=== PATIENT | male | born 1975 | race Caucasian/White ===

== ENCOUNTER 2020-08-17 19:45 | Emergency (ER) | payer OTHER ==
[~2020-08-17] VITALS: Ht 190.5 cm; Wt 99.8 kg
[2020-08-17] MEDS ORDERED: FERROUS SULFAT325 MG PO (22:02)
== END 2020-08-17 22:18 | disposition home or self-care (01) ==
LOC: ED 19:45
DX: D50.9 Iron deficiency anemia, unspecified (principal); K62.89 Other specified diseases of anus and rectum; F17.200 Nicotine dependence, unspecified, uncomplicated
CPT/HCPCS: 80053; 82728; 83540; 83735; 84466; 85025; 85610; 85730; 99284

== ENCOUNTER 2020-08-23 10:30 | Inpatient (IN) | payer OTHER ==
[~2020-08-23] VITALS: Ht 190.5 cm; Wt 98.2 kg
[~2020-08-23 10:30] MED LIST: FERROUS SULFAT325 MG PO
--- OUTSIDE RECORDS SUMMARY | 2020-08-23 10:36 | XMS ---
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 Maria G has no Care Guidelines for this patient. Kyara VISIT COUNT (12 MO.) [address] [facility] TOTAL 2 NOTE: Visits indicate total known visits. ED/C VISIT TRACKING (12 MO.) 08/23/2020 10:[address] [facility] [place] TYPE: Emergency COMPLAINT: - ABD PAIN 08/17/2020 19:46 [facility] [place] TYPE: Emergency COMPLAINT: - WEAKNESS DIAGNOSES: - Weakness - Iron deficiency anemia, unspecified - Other specified diseases of anus and rectum - Nicotine dependence, unspecified, uncomplicated INPATIENT VISIT TRACKING (12 MO.) No inpatient visits to display in this time frame [id number]
--- NOTE | 2020-08-23 20:15 | NUR ---
1ST UNIT OF PRBC'S STARTED WITH MARY MARAVILLA CHARGE NURSE. VS STABLE AND ASSESSMENT BENIGN EXCEPT PATIENT HAS AN EXPIRATORY WHEEZE IN ALL LUNG [place], WHICH PATIENT SAYS HE HAS HAD. MARY MARAVILLA STAYING IN THE ROOM FOR 15 MINUTES WITH PATIENT.
--- NOTE | 2020-08-23 20:36 | NUR ---
FIRST UNIT PACKED RED BLOOD CELLS INFUSING AT 2014. pt EDUCATION PROVIDED, NO ADVERSE REACTIONS NOTED AFTER 15 MINUTES, RN IN ROOM PER PROTOCOL. RATE INCREASED TO 175 MLS/HR. CHASTITY BURGESS PROVIDED TO pt. IN ROOM. VSS. NO ADDITIONAL NEEDS AT THIS TIME. CALL LIGHT IN REACH.
--- NOTE | 2020-08-23 22:57 | NUR ---
SECOND UNIT BLOOD INFUSING WNL. RN IN ROOM FOR 15 MINUTES PER POLICY, NO ADVERSE REACTION. BLOOD INFUSION INCREASED TO 175 ML/HR. pt RATES PAIN 6-7/10 IN ABDOMEN, PRN PO PAIN MEDICATION ADMINISTERED. CALL LIGHT IN REACH. LIGHTS OFF IN ROOM.
--- NOTE | 2020-08-23 23:40 | NUR ---
PATIENT'S 2ND UNIT OF PRBC'S STILL INFUSING WNL. PATIENT SAID HIS PAIN IS UNDER CONTROL AT THIS TIME. PATIENT TRYING TO SLEEP INBETWEEN STAFF TIMES OF ENTERING THE ROOM. CALL LIGHT IN REACH AND PATIENT HAS NO NEEDS AT THIS TIME.
--- NOTE | 2020-08-24 00:59 | NUR ---
PATIENT'S 2ND UNIT PRBC'S INFUSED. VS STABLE AND NO TRANSFUSION REACTION NOTED. PATIENT HAVING 7/10 RUQ ABD PAIN AND 1MG IV DILAUDID GIVEN. CALL LIGHT IN REACH.
--- NOTE | 2020-08-24 02:46 | NUR ---
PATIENT RESTING QUIETLY, CALL LIGHT IN REACH, RESPIRATIONS REGULAR AND EVEN, EYES CLOSED, PATIENT IN SEMI-FOWLERS POSITION. NO NEEDS AT THIS TIME.
--- NOTE | 2020-08-24 03:29 | NUR ---
PATIENT WA AWAKE DOING ROOM CHECKS AND HE SAYS HE DOES NOT HAVE ANY NEEDS AT THIS TIME. CALL LIGHT IS IN REACH.
--- NOTE | 2020-08-24 05:24 | NUR ---
PATIENT JUST UP TO THE BATHROOM TO VOID AND BACK TO BED WITH 1PSBA. PATIENT'S PAIN IS 7/10 IN RUQ OF THE ABD. 2 PO NORCO GIVEN. PATIENT HAS HAD 1MG IV DILAUDID TWICE THIS SHIFT AND ONE OTHER NORCO. PAIN DROPS DOWN TO 3-4/10 AFTER MEDICATION AND PATIENT USUALLY REQUESTING PAIN MEDS AT 7-8/10. VS HAVE BEEN STABLE AND URINE OUTPUT HAS BEEN ADEQUATE. PATIENT WANTING TO GET SOME MORE SLEEP AND LIGHTS TURNED DOWN AND CALL LIGHT IN REACH.
--- NOTE | 2020-08-24 05:56 | CONS ---
[facility] [address], [place] [address] Signed DATE OF CONSULTATION: 08/23/2020 CHIEF COMPLAINT: Right upper quadrant abdominal pain. 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 He [place] about [place] . He said over the winter he typically loses about 20 pounds. However, this winter he has lost 40 pounds. He said he has developed shortness of breath and dyspnea on exertion is feeling weak and fatigued. He had been to his primary care provider as well as the emergency room. His hemoglobin was just over 6 and so he had been sent to the emergency room. He was evaluated and found to have a mean cell volume in the 50s. He was not having any obvious hematemesis, hematochezia or melena. He thinks maybe he might have had one or two dark stools, but he is not sure. Consequently, he was discharged home on iron and asked to follow up his primary care provider. However, his symptoms seemed to be escalating, so he came back to the emergency room. On this occasion, he has negative and the CT scan shows that he has a large necrotic tumor and hepatic flexure of his colon. The liver seems to be unremarkable. Consequently, I was asked to admit him as a general surgeon on-call. In the meantime, I was operating so I did have our hospitalist see him and he is going to get a couple of units tonight. We will plan on doing his bowel prep tomorrow. PAST MEDICAL HISTORY: Anemia. PAST SURGICAL HISTORY: Right knee surgery and a right inguinal hernia repair at age [age]. SOCIAL HISTORY: He smokes marijuana. He has a drink once or twice a month. He is to his , Iman, . They have two children and now are grown. 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 They live in [place], [place]. Dr. Estefania Reddy is his primary care provider, [facility]. FAMILY HISTORY: Dad had diabetes, hypertension, coronary artery disease. No one had any family history of colon polyps or cancer. REVIEW OF SYSTEMS: He said he has no metal in his body. ALLERGIES: Electronically Signed By: KENNEDI STRONG MD 08/24/20 0556 PATIENT NAME: GAUDENCIO VICKERS CONSULTATION DATE OF : 75 REPORT #: [id number] PHYSICIAN: KENNEDI STRONG MD PCP: ROWENA REDDY PA-C REPORT IS CONFIDENTIAL AND NOT TO BE RELEASED WITHOUT AUTHORIZATION [facility] [address], [place] [address] Signed None. MEDICATIONS: None. PHYSICAL EXAMINATION: VITAL SIGNS: Blood pressure 124/81, heart rate 73, respiratory rate 16, temperature is 98.4. He is 100% on room air. He is 6 feet 3 inches at 97 kg. GENERAL: Gaudencio is a 45-year-old gentleman who generally appears healthy and at his stated age. His is at the bedside. LUNGS: Clear to auscultation bilaterally. HEART: Regular rate and rhythm without murmurs. ABDOMEN: Generally soft and flat, but he has fullness right over the area of the gallbladder and hepatic flexure with some tenderness. RECTAL: Not repeated today. LABORATORY DATA: His white blood count 11.0. His neutrophils are 75, his hemoglobin 7.4 with a mean cell volume of 56, platelets 421. BUN 15, creatinine 0.92. Liver function tests are negative. Albumin 4.2. Urinalysis negative. COVID is negative. RADIOGRAPHIC STUDIES: CT scan abdomen and pelvis is reviewed including the report and the images. He clearly has a very large necrotic tumor in the hepatic flexure. Liver appears to be uninvolved. However, there are some lymph nodes and they were not particularly enlarged. 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 He is going to be admitted and given a couple of units tonight. Hopefully, we will do a bowel prep tomorrow with a colonoscopy the next day followed by surgery the day or two after that. In the meantime, he needs a CEA level and a CT scan of his lungs. I reviewed all this with Gaudencio and his in detail. They have expressed understanding agreed above plan. Kennedi Strong MD ALB/MODL /[id number] Electronically Signed By: KENNEDI STRONG MD 08/24/20 0556 PATIENT NAME: GAUDENCIO VICKERS CONSULTATION DATE OF : 75 REPORT #: [id number] PHYSICIAN: KENNEDI STRONG MD PCP: ROWENA REDDY PA-C REPORT IS CONFIDENTIAL AND NOT TO BE RELEASED WITHOUT AUTHORIZATION [facility] [address] [place], [place] [address] Signed cc: Rowena Reddy Copies: ~ Electronically Signed By: KENNEDI STRONG MD 08/24/20 0556 PATIENT NAME: GAUDENCIO VICKERS CONSULTATION DATE OF : 75 REPORT #: [id number] PHYSICIAN: KENNEDI STRONG MD PCP: ROWENA REDDY PA-C REPORT IS CONFIDENTIAL AND NOT TO BE RELEASED WITHOUT AUTHORIZATION
--- NOTE | 2020-08-24 07:30 | NUR ---
RECEIVED REPORT AT 0700, FOUND PT AWAKE IN ROOM. PT HAD NO NEEDS AT THAT TIME. AT ABOUT 0715 PT DID VOMIT 100MLS. 8MG ZOFRAN WAS GIVEN. WILL CONTINUE TO MONITOR.
--- NOTE | 2020-08-24 08:19 | NUR ---
MED REC COMPLETE
--- NOTE | 2020-08-24 09:30 | NUR ---
LOBES ARE CLEAR, ABD IS SOFT BUT RUQ IS TENDER TO TOUCH. PT HAS A VERY FLAT AFFECT AND STATED THAT HE FEELS DEPRESSED. ABD IS NOT DISTENDED PER PT, PT IS NOT JAUNDICE. NORCO DOES WELL FOR PAIN. WILL CONTINUE TO MONITOR.
--- NOTE | 2020-08-24 11:29 | NUR ---
Pt lives at [place] with his . He has 2 adult children. FAmily will assist as needed. He does not use any DME. House is 1 story with 2 steps and he does not believe he will have any problems with ambulation. Denies financial issues. 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 Plans on dc to home when cleared medically.
--- NOTE | 2020-08-24 12:00 | NUR ---
THERAPUTIC LISTENING WAS DONE WITH PT. PT IS DRINKING BOWEL PREP. PAIN IS CONTROLLED WELL WITH NORCO. NO NEW CONCERNS NOTED AT THIS TIME.
--- NOTE | 2020-08-24 13:59 | NUR ---
PATIENT IS SLEEPING.
--- NOTE | 2020-08-24 14:00 | NUR ---
PT HAD SOME NAUSEA EARLIER. PRN PHENERGAN WAS GIVEN. PT AT THIS TIME HAS NO N/V. PT STILL DRINKING BOWEL PREP.
--- NOTE | 2020-08-24 16:00 | NUR ---
PT IN BED SLEEPING. NO MORE N/V AFTER PHENERGAN WAS GIVEN.
--- NOTE | 2020-08-24 17:44 | NUR ---
AT START OF SHIFT PT NEEDED PRN ZOFRAN FOR VOMITING. PT THIS AFTERNOON NEEDED PHENERGAN FOR NAUSEA. PT OVERALL HAS BEEN TRYING TO COME TO TERMS WITH HIS HEALTH SITUATION AND DIAGNOSIS. PT HAS A FLAT AFFECT AT TIMES. ABD IS TENDER TO TOUCH RUQ. BOWEL TONES PRESENT. URINE LOOKS ORANGE IN COLOR. PT HAS BEEN DRINKING BOWEL PREP. V/S WDL OVERALL, OUTPUT WDL OVERALL.
--- NOTE | 2020-08-24 19:27 | NUR ---
PATIENT IS INDEPENDENT. I DID ASK HIM IF HE WOULD LIKE TO TAKE A SHOWER SOMETIME TODAY AND HE SAID MAYBE.
--- NOTE | 2020-08-24 19:30 | NUR ---
SHIFT REPORT RECEIVED FROM DARON SHANKAR AT BEDSIDE. pt AWAKE AND RESTING IN BED, IN ROOM. IV FLUIDS INFUSING PER MD GARRISON, SITE WNL. REMAINING BOWEL PREP AT BEDSIDE, pt REPORTS HAVING 5-6 BM'S SINCE STARTING BOWEL PREP. WILL MONITOR. NO NEEDS AT THIS TIME, CALL LIGHT IN REACH. BOARD UPDATED.
--- NOTE | 2020-08-24 19:36 | NUR ---
pt reports 7/10 abd pain, prn pain med provided. new bag iv fluids provided. no other needs at this time. call light inr each.
--- NOTE | 2020-08-24 20:35 | NUR ---
ASSESSMENT COMPLETE, SCHEDULED PATCH KEPT IN PLACE PER pt REQUEST. A/OX4, VSS. SCANT EXP WHEEZE IN BILATERAL UPPER LOBES, O2 SAT WNL ON RA. pt DENIES CHEST PAIN AND SOB, RATES PAIN 3/10 IN RIGHT UPPER QUADRANT. DENIES WORSENING DISTENSION, ALSO DENIES NAUSEA. NO FURTHER NEEDS, CALL LIGHT IN REACH. SCD'S OFF AT THIS TIME TO HELP WITH GETTING TO BATHROM. pt REPORTS MULTIPLE BM'S SINCE STARTING BOWEL PREP, pt STATES, "I HAD A BM NOT TOO LNG AGO, BUT I FORGOT TO SAVE IT AND IT GOT FLUSHED". WILL MONITOR.
--- NOTE | 2020-08-25 00:05 | NUR ---
pt MADE NPO AT THIS TIME, pt AWOKE WHEN RN ENTERED ROOM. VERBALIZES UNDERSTANDING REGARDING NPO STATUS. DENIES BM SINCE EVENING ASSESSMENT. pt INSTRUCTED TO CALL AFTER HAVING BM, pt VERBALIZED UNDERSTANDING. NO FURTHER NEEDS, CALL LIGHT IN REACH.
--- NOTE | 2020-08-25 01:51 | NUR ---
ASSESSMENT COMPLETE, NO NEW CHANGES OR CONCERNS. pt REPORTS PAIN TOLERABLE, 3-4/10. DENIES NEED FOR PAIN MEDICATION. RECENT BM, LIQUID, DARK BROWN IN COLOR. DENIES NAUSEA. IV FLUIDS REMAINS INFUSING PER MD ORDERS, SITE WNL. NO FURTHER NEEDS, CALL LIGHT IN REACH.
--- NOTE | 2020-08-25 05:05 | NUR ---
VS AND I&O'S COMPLETE AND STABLE, RECENT BM LIQUID BROWN WITH SMALL AMOUNT OF SEDIMENT CONSISTENCY. 100MLS OUTPUT. WILL CONTINUE TO MONITOR. NEW BAG IV FLUIDS HUNG AND INFUSING, SITE WNL. MOUTH SWABS PROVIDED, pt NPO. NO FURTHER NEEDS, CALL LIGHT IN REACH. LR WITH SRAIGHT TUBING ALSO IN ROOM.
--- NOTE | 2020-08-25 06:45 | NUR ---
pt HAD UNEVENTFUL NIGHT, SLEPT OFF AND ON THIS SHIFT. PAIN CONTROLLED WITH PO PAIN MEDICATION, SEE EMAR. INDEPENDENT IN ROOM, VSS. IV FLUIDS PER MD ORDERS, SITE WNL. MULTIPLE BM'S THIS SHIFT, NPO SINCE MIDNIGHT FOR PLANNED COLONOSCOPY. VOIDING QS, DENIED NAUSEA. BOWEL TONES ACTIVE.
--- NOTE | 2020-08-25 08:16 | NUR ---
CALLED MD STRONG IN REGARDS TO HOLDING LOVENOX PRIOR TO COLONOSCOPY AT 0845. I WAS INSTRUCTED TO GIVE IT.
--- NOTE | 2020-08-25 08:45 | NUR ---
PT LEFT FLOOR FOR COLONOSCOPY.
--- NOTE | 2020-08-25 09:30 | NUR ---
PT GONE TO SURGERY FOR COLONOSCOPY. NO CHANGE IN PLAN FOR DC.
--- NOTE | 2020-08-25 10:02 | NUR ---
08/25/20 1002 Shavon Ayoub 0948 PT ARRIVED TO PACU ON 6L VIA MASK, PT NONREACTIVE. 0959 PT WOKE AND IS REORIENTED TO PACU, PT DENIES PAIN. VSS.
--- NOTE | 2020-08-25 10:24 | NUR ---
PT STILL IN SX.
--- NOTE | 2020-08-25 11:02 | NUR ---
PT ARRIVED ON FLOOR AT 1030. PT AAOX4, ABD SOUNDS PRESENT, V/S WDL.
--- NOTE | 2020-08-25 11:39 | NUR ---
PT TAKEN TO SURGERY, WILL CHECK BACK
--- NOTE | 2020-08-25 11:58 | NUR ---
POST-OP Q1 HOURS VS DONE. ALL WITHIN NORMAL LIMITS. PT REPORTS TO BE SLOWLY PASSING GAS, ABD DISCOMFORT AND PAIN LEVEL AROUND 5. JELLO GIVE PER PT REQUEST AND COMPLIANCE WITH DIET ORDERED. ENCOURAGED TO KEEP DRINKING WATER, KEEP PULSE OX ON AND TO PASS GAS. IS AWARE OF THE PLAN. ORIENTED AND COMPLIANT. WILLING TO GO FOR A WALK IN A LITTLE WHILE. NO EXTRA NEED AT THIS POINT. CALL LIGHT WITHIN REACH.
--- NOTE | 2020-08-25 13:30 | NUR ---
POST OP V/S DONE AND WDL. PT DENIES PAIN AND N/V. WILL CONTINUE TO MONITOR.
--- NOTE | 2020-08-25 16:00 | NUR ---
FIRST UNIT OF BLOOD RUNNING. PT IS DOING WELL. NO NEW CONCERNS NOTED SO FAR.
--- NOTE | 2020-08-25 16:45 | NUR ---
PT HAS BEEN RESTING FOR A BIT. ABD SOUNDS ARE PRESENT, ABD IS SOMEWHAT SOFT OVERALL AND JUST A BIT TENDER. PT DENIES SOB. PT DOES HAVE A FEVER AGAIN HOWEVER 100.0 F. WALL SUCTION ON ABD WOUND SEEMS TO BE WORKING ALRIGHT SO FAR. IJ DRESSING WAS CHANGED TODAY ALSO. NO NEW CONCERNS NOTED AT THIS TIME. WILL LET PT EAT DINNER AND GIVE HIM A REST PERIOD ONCE MORE. APPETITE WAS MODERATE TODAY SO FAR.
--- NOTE | 2020-08-25 16:57 | NUR ---
BROUGHT HIM A ICE WATER, APPLE CLEAR AND A LEMON-ROBINSON SODA.
--- NOTE | 2020-08-25 17:13 | EKG ---
[facility] [address] [place] [address] Signed Normal sinus rhythm Normal ECG No previous ECGs available Confirmed by ALFA HARRINGTON MD ([id number]) on 08/25/2020 5:13:16 PM Electronically Signed By: ALFA HARRINGTON MD 08/25/20 1713 PATIENT NAME: KENDRA VICKERS Electrocardiogram DATE OF : 75 PHYSICIAN: ALFA HARRINGTON MD REPORT #: [id number] REPORT IS CONFIDENTIAL AND NOT TO BE RELEASED WITHOUT AUTHORIZATION
--- NOTE | 2020-08-25 17:28 | NUR ---
WOUND VAC DRESSING WAS CHANGED WITH MD HENAO THIS MORNING. SUCTION WAS AND IS HOOKED TO WALL SUCTION AT THIS TIME AND IT SEEMS TO BE WORKING SO FAR. PT NOW HAS A TEMP ON 100.0 F ONCE MORE. V/S DOABLE OVERALL WITH SOFT BP'S AND AN ELEVATED HR. IJ DRESSING CHANGE WAS ALSO DONE. PT OVERALL WAS IN A DECSENT MOOD TODAY. NO NEW CONCERNS NOTED OVERALL.
--- NOTE | 2020-08-25 17:33 | NUR ---
PT LEFT FOR COLONOSCOPY AT 0845. ONE BIOPSY WAS TAKEN FROM THE COLON. PT RETURNED TO FLOOR AT 1030. PT SINCE HAS BEEN AAOX4, ON RA, V/S WDL, PRN NORCO GIVEN ONCE FOR FAR. ABD SOUNDS PRESENT, NO CHANGES IN ABD APPEARANCE. NO NEW CONCENRS NOTED AT THIS TIME.
--- NOTE | 2020-08-25 18:50 | NUR ---
SECOND BLOOD UNIT STARTED AT 1813. PT IS DOING WELL, V/S WDL SO FAR.
--- NOTE | 2020-08-25 19:30 | NUR ---
SHIFT REPORT RECEIVED FROM DARON SHANKAR AT BEDSIDE. pt AWAKE AND RESTING IN BED, UNIT 2 OF 2 OF PRBC INFUSING AT 150MLS/HR, SITE WNL. pt DENIES S/SX OF INFUSION REACTION. ALSO IN ROOM. CALL LIGHT IN REACH.
--- NOTE | 2020-08-25 19:36 | NUR ---
PATIENT IS PRETTY INDEPEDENT. BUT HE DOES CALL WHEN HE NEEDS SOME HELP.
--- NOTE | 2020-08-25 21:20 | NUR ---
ASSESSMENT COMPLETE, SCHEDULED MEDS ALONG WITH PRN PAIN MEDICATION GIVEN. SEE EMAR. 2 OF 2 UNITS PRBC ALSO DONE AT THIS TIME. NO S/SX OF BLOOD INFUSION REACTION. IV FLUIDS RESUMED PER MD ORDERS, IV SITE WNL. pt REPORTS 6/10 PAIN, DENIES NAUSEA. NO FURTHER NEEDS AT THIS TIME, CALL LIGHT IN REACH.
--- NOTE | 2020-08-25 21:21 | NUR ---
IN TO GET VITALS, PT WILL GET UP TO VOID SHORTLY AFTER FINISHING TRANSFUSION, NO FURTHER NEEDS AT THIS TIME
--- NOTE | 2020-08-25 23:50 | NUR ---
new bag iv fluids hung and infusing per md order, site wnl. no further needs, call light in reach.
--- NOTE | 2020-08-26 00:15 | NUR ---
pt MADE NPO AT THIS TIME, DIET ORDER UPDATED.
--- NOTE | 2020-08-26 01:42 | NUR ---
VS AND I&O'S COMPLETE. ASSESSMENT ALSO COMPLETE, NO NEW CHANGES. REPORTS 5-6/10 PAIN, GOING TO USE RESTROOM AND ATTEMPT TO GO BACK TO SLEEP. PAIN MEDICATION OFFERED, DECLINED AT THIS TIME. WILL MONITOR. pt GETTING READY TO GET OOB TO VOID. INDEPENDENT IN ROOM.
--- NOTE | 2020-08-26 05:51 | NUR ---
VS AND I&O'S COMPLETE, PRE-OP [place] ALSO DONE WITH COMPLTE BED CHANGE. LR WITH TUBING PRIMED AND IN ROOM. pt BACK IN BED, DENIES FURTHER NEEDS, CALL LIGHT IN REACH.
--- NOTE | 2020-08-26 06:10 | NUR ---
PRN PAIN MEDICATION GIVEN FOR INCREASING ABD PAIN, SEE EMAR. CALL LIGHT IN REACH.
--- NOTE | 2020-08-26 06:54 | NUR ---
pt HAD AN UNEVENTFUL NIGHT, SLEPT OFF AND ON. PAIN CONTROLLED WITH PRN PAIN MEDICATIONS. NPO SINCE MIDNIGHT, DENIED NAUSEA. INDEPENDENT IN ROOM. IV FLUIDS PER MD ORDERS, SITE WNL.
--- NOTE | 2020-08-26 07:11 | OR ---
[facility] [address], [place] [address] Signed DATE OF OPERATION: 08/25/2020 SURGEON: Kennedi Strong MD PREOPERATIVE DIAGNOSES: 1. Severe anemia. 2. Hepatic flexure colonic mass. POSTOPERATIVE DIAGNOSES: 1. Severe anemia. 2. Hepatic flexure colonic mass. 3. 4 mm polyp at 7 cm. PROCEDURE: Colonoscopy with hot biopsy and cold biopsies. ESTIMATED BLOOD LOSS: None. 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 He lives about [place] [address] [facility] [place], [place]. He noticed he was having upper abdominal pain and was developing distant dyspnea on exertion. He lost about 40 pounds over the last six months. He said he normally loses about 20 pounds every winter. His symptoms continued to worsen and he was getting progressively more weak. He ended up being sent over to the emergency room when he was found to be severely anemic. He was guaiac negative. He was not imaged at that time and it was decided he would be started on iron pills with further outpatient evaluation. He came back with continued weakness. On this occasion, he was imaged and he has a large tumor in hepatic flexure that is necrotic and causing pain. I have been asked to admit him as a general surgeon on-call. We did have our Internal Medicine Service see him. He did receive 2 units of packed red blood cells. His hemoglobin had been 7.4 and is just over 8 now. I met with Gurpreet and his in the emergency room and here in the hospital now several times. We have reviewed the above findings in great detail. His CEA level came back this morning at 3700. We also did a CT scan of his chest and that was unremarkable. The CT scan does not show any obvious lesions in the liver. I reviewed with him the need for a colonoscopy to rule out synchronous lesions and then plan for what is likely an extended right colectomy. I brought brochure to the hospital on colorectal polyps and cancer. We have been through in detail. I circled the sections relevant to him. I marked the location of the colon containing his tumor. We also Electronically Signed By: KENNEDI STRONG MD 08/26/20 0711 PATIENT NAME: GAUDENCIO VICKERS OPERATIVE REPORT DATE OF : 75 REPORT #: [id number] PHYSICIAN: KENNEDI STRONG MD PCP: ROWENA REDDY PA-C REPORT IS CONFIDENTIAL AND NOT TO BE RELEASED WITHOUT AUTHORIZATION [facility] [address], [place] [address] Signed reviewed colonoscopy in detail. He understands the nature of a colonoscopy. He knows there is risk including, but not limited to gas bloating, crampy abdominal pain, bleeding, perforation requiring surgery, and missed diagnosis. We also reviewed the need for IV conscious sedation. Given his current situation his anemia, we asked an anesthesia provider to help us with increased monitoring sedation with propofol. That proved to be a campos decision. It took a bit to get the camera through the tumor itself. He had expressed understanding and wished to proceed. PROCEDURE NOTE: Gaudencio was taken into our endoscopy suite and placed in the left lateral decubitus position. He was given IV sedation per our nurse wallpaper installer. A digital rectal exam was performed and this was unremarkable. He had some very small external hemorrhoids. The adult colonoscope was introduced and we could immediately find a tiny polyp in his rectum. It was easily removed with a hot biopsy forceps. Given his rather significant tumor burden, he actually did very well with his bowel prep. He did have some areas of very dark if not black liquid heavily particulate stool matter, much of that was suctioned out but not quite all of it. We made our way around to the hepatic flexure. We could feel that with the tip of the scope, it was only about 75 to 80 cm. That is not particularly far consider the fact that Gurpreet is 6 feet 3 inches tall. However, it certainly palpated in the right area and we could certainly feel a tumor after his sedation. It took a few minutes to finally track our way through the tumor with moderate pressure and then we could see into the right colon. I could not advance the scope quite up into the cecum itself. There was too much resistance from the tumor. Although we could see the cecum and the ileocecal valve. There was just a bit of stool in that area. Although it looked fine to us. The scope was then slowly withdrawn back through the tumor and multiple pictures were taken for photodocumentation. Two biopsies were taken from the tumor. Of course is quite indurated, but it did bleed a bit and we can see there was black areas consistent with his necrosis. The rest of the transverse colon, left colon, sigmoid colon were unremarkable. We had retroflexed the scope in the rectum and we did see much above the anal canal. Some of that was covered in black liquid stool. After this, the gas was suctioned out, colonoscope removed. Overall Gurpreet tolerated the procedure quite well. RECOMMENDATIONS: Gurpreet is going to be returned to his room today. He will be going to clear liquid diet and we will give him two more units of packed red blood cells today to increase his oxygen carrying capacity. We will plan on his extended right colectomy tomorrow. Kennedi Strong MD Electronically Signed By: KENNEDI STRONG MD 08/26/20 0711 PATIENT NAME: GAUDENCIO VICKERS OPERATIVE REPORT DATE OF : 75 REPORT #: [id number] PHYSICIAN: KENNEDI STRONG MD PCP: ROWENA REDDY PA-C REPORT IS CONFIDENTIAL AND NOT TO BE RELEASED WITHOUT AUTHORIZATION [address] [place] [address] Signed ALB/MODL /[id number] cc: Rowena Reddy Copies: ~ Electronically Signed By: KENNEDI STRONG MD 08/26/20 0711 PATIENT NAME: GAUDENCIO VICKERS OPERATIVE REPORT DATE OF : 75 REPORT #: [id number] PHYSICIAN: KENNEDI STRONG MD PCP: ROWENA REDDY PA-C REPORT IS CONFIDENTIAL AND NOT TO BE RELEASED WITHOUT AUTHORIZATION
--- NOTE | 2020-08-26 07:46 | NUR ---
PER MD STRONG SCHEDULED LOVENOX IS TO BE GIVEN NOW.
--- NOTE | 2020-08-26 08:52 | NUR ---
PT LEFT FOR OR AT 0845. ABX WERE HANGING.
--- NOTE | 2020-08-26 10:43 | NUR ---
08/26/20 1043 [place] [address] 1036: PT ARRIVES TO PACU FROM OR WITH EYES CLOSED, OPA IN PLACE ON 6 L O2 VIA MASK. PT DOES NOT AROUSE TO VERBAL/TACTILE STIMILI. JORJE AYALA AT BEDSIDE. MARY GOLDEN SECOND.
--- NOTE | 2020-08-26 11:17 | NUR ---
FACE SHEET FAXED TO [facility], FAX NUMBER .
--- NOTE | 2020-08-26 11:30 | NUR ---
PT JUST ARRIVED BACK FROM PACU. PAIN 10/10, PT IS ON 4L O2 NC SO FAR. PT IS SOMEWHAT DROWSY. RR WDL SO FAR. IS AT BEDSIDE. LOBES CLEAR, ABD SOUNDS ARE ABSENT, MID ABD INCISION IS COVERED WITH GAUZE AND TAPE. THERE IS A SCAN AMOUNT OF SHADOWING PRESENT WHICH WAS TRACED. V/S WDL OVERALL SO FAR.
--- NOTE | 2020-08-26 12:53 | NUR ---
RR WDL SO FAR. ANOTHER 0.7MG IV PRN DILAUDED GIVEN. WILL CONTINUE TO MONITOR.
--- NOTE | 2020-08-26 13:04 | NUR ---
IMAGING CALLED TO PUSH IMAGES TO [facility].
--- NOTE | 2020-08-26 14:32 | NUR ---
WE ARE STILL WAITING ON SECOND EMS CREW TO GET HERE. CREW HAD TO BE CHANGED OUT.
--- NOTE | 2020-08-26 15:11 | NUR ---
PT LEFT WITH [facility] AT 1455. REPORT WAS CALLED AT 1511 TO [facility] IN [place]. MARY GRAVES RECEIVED REPORT FROM [place].
--- NOTE | 2020-08-27 07:45 | DS ---
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 PROCEDURES: 1. CT scan of the chest, abdomen, pelvis. 2. Colonoscopy with hot biopsy. 3. Exploratory laparotomy. 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 He is generally healthy. He said he loses about 20 pounds every winter. However, this winter he has noticed a 40 pounds weight loss with increasing weakness and fatigue, dyspnea on exertion, and shortness of breath. He finally went to his primary care provider for evaluation. He was found to be severely anemic with hemoglobin around 6.8. He went to the emergency room for evaluation. After seeing the ER physician in the hospitalist service, it was felt he could be evaluated as an outpatient. However, he came back a few days later with worsening symptoms, but now having pain in the right upper quadrant. In talking with him further and his , he is having pain in this area 30-60 minutes after he eats. He therefore had a CT scan of the abdomen and pelvis, it showed that he had a very large necrotic tumor at the hepatic flexure/proximal transverse colon. I have been asked to admit him as a general surgeon on-call. HOSPITAL COURSE: We admitted Gaudencio as above and had our Internal Medicine Service see him as well. His hemoglobin was 7.4. He got 4 units of blood and he is up at 9.8. We cordell a CEA level and it was 3770. We checked the CT scan of his lungs and it was unremarkable. We put him through a bowel prep, which he tolerated with some difficulty and we took him for a colonoscopy on 08/25/2020. We found the tumor at 80 cm from the anal verge in the proximal transverse colon. It took a minute to find a lumen and we were able to get the camera through the tumor, but there was too much resistance to continue to advance the scope down the right colon. Fortunately, we could see down the right colon through the ileocecal valve and the cecum. He was prepped well and we saw no other synchronous lesions. We cordell the scope back through the tumor and took pictures and a couple of biopsies of the tumor as we withdrew the scope. Then, from the tumor all the way down to the colon was unremarkable without any synchronous lesions as well. The rectum had a tiny 4 mm polyp at 7 cm from the anal verge. It was easily removed with a hot biopsy forceps. The retroflexion of scope did not show any additional pathology above the anal Electronically Signed By: KENNEDI STRONG MD 08/27/20 0745 PATIENT NAME: GAUDENCIO VICKERS DISCHARGE SUMMARY DATE OF : 75 REPORT #: [id number] PHYSICIAN: KENNEDI STRONG MD PCP: ROWENA STEWART PA-C REPORT IS CONFIDENTIAL AND NOT TO BE RELEASED WITHOUT AUTHORIZATION [address] [address] Signed canal. We then decided after a long discussion with him and his , we would take him to the operating for probable colectomy. We did that this morning and we found his rather large tumor. We did not see any evidence regionally metastatic disease as far as liver was concerned. However, this tumor is directly over the head of the pancreas. It has drawn the antrum, pylorus towards it and a little bit of the duodenum as well. Although, there was space between them and I think that will be able to be resected in due time. A part of the distal small bowel was adherent to the inferior portion of the tumor and again that will easily be resected. Unfortunately, this tumor was somewhat adherent to the retroperitoneum inferiorly and certainly over the area of the head of the pancreas. I lifted that up a bit with my fingers, and I think this going to be surgical plane between the two, but it is difficult to know for sure. In addition, I saw some area of hemorrhage on the anterior aspect of the gallbladder and I suspect that was lying on this tumor as well. After careful consideration, our surgical team felt he was best served at a large tertiary referral center with a multi-team approach. Consequently, I contacted his by phone and I just spoke to him a few minutes ago with respect to our intraoperative findings. They are both in agreement that he would be better served at one of our large tertiary referral centers. In the meantime, I was able to contact [facility] in . The on-call surgeon Dr. Reynolds was kind enough to accept him in transfer. Once there was a bed available, we will be able to send him down by ambulance. In the meantime, he has returned to his room on IV fluids and a clear liquid diet. He and his have expressed understanding and agreed with the above plan. We look forward to input from the team at [facility]. Kennedi Strong MD ALB/MODL /[id number] cc: Kennedi Strong MD Copies: KENNEDI STRONG MD ~ Electronically Signed By: KENNEDI STRONG MD 08/27/20 0745 PATIENT NAME: GAUDENCIO VICKERS DISCHARGE SUMMARY DATE OF : 75 REPORT #: [id number] PHYSICIAN: KENNEDI STRONG MD PCP: ROWENA STEWART PA-C REPORT IS CONFIDENTIAL AND NOT TO BE RELEASED WITHOUT AUTHORIZATION
--- NOTE | 2020-08-27 07:45 | OR ---
[facility] [address] [place], [place] [address] Signed DATE OF OPERATION: 08/26/2020 SURGEON: Kennedi Strong MD PREOPERATIVE DIAGNOSIS: 13 to 15 cm hepatic flexure colonic mass/tumor. POSTOPERATIVE DIAGNOSIS: 13 to 15 cm proximal transverse colon tumor. PROCEDURES: Exploratory laparotomy. ESTIMATED BLOOD LOSS: None. FINDINGS: Gaudencio has a rather large necrotic tumor in his proximal transverse colon directly over the head of the pancreas. It appears that it is resectable, but the question is the posterior margin over the head of the pancreas. Please see the body of the dictation for more details. INDICATIONS: Gurpreet is a 45-year-old gentleman who is generally healthy. 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 Over the last 4 to 6 months he has noticed increasing fatigue, weakness, shortness of breath and dyspnea on exertion. He said he loses about 20 pounds every winter. However, he currently has lost 40 pounds. He had been to his primary care provider and found to be quite anemic. He was asked to go to the local emergency room at [facility]. His hemoglobin was low around 7.4 and he was asked to take iron tablets and follow up his primary care provider. He was having no hematemesis or hematochezia. He was guaiac negative. He was not imaged on that particular occasion. However, he felt like his symptoms were worsening, so he came back to the emergency room. On this occasion again, his hemoglobin is around 7.4 with a mean cell volume of 56. He was starting to have more pain in the right upper quadrant area. I think that is consistent with the fact that the tumor is now becoming necrotic. He was tested and COVID negative. He did receive a CT scan of abdomen and pelvis and sure enough he has a large necrotic tumor at hepatic flexure and/or the proximal transverse colon. No evidence of any metastatic disease. I have been asked to see him as a general surgeon on-call. In the meantime he has received 4 units of packed red blood cells and his hemoglobin is up to 9.8. We did check a CEA level and it is 3773. He was Electronically Signed By: KENNEDI STRONG MD 08/27/20 0745 PATIENT NAME: GAUDENCIO VICKERS OPERATIVE REPORT DATE OF : 75 REPORT #: [id number] PHYSICIAN: KENNEDI STRONG MD PCP: ROWENA STEWART PA-C REPORT IS CONFIDENTIAL AND NOT TO BE RELEASED WITHOUT AUTHORIZATION [facility] [address] [place], [place] [address] Signed able to tolerate the bowel prep the day before yesterday and we took him to the endoscopy suite yesterday. At around 75 to 80 cm from the anal verge, we encountered his tumor. It took just a few minutes on some pressure to get through the tumor, but we had to stop because there was too much pressure and drag on our scope. But we could see down the right colon to the cecum the ileocecal valve. That all appeared clear. We brought the camera back and took pictures and a couple of biopsies of the tumor and then from the tumor all the way down to the rectum was clear. There was no polyps. No other tumors and no diverticulosis. In the rectum at around 7 cm he had a very tiny hyperplastic appearing polyp. It was removed with our hot biopsy forceps. We retroflexed the scope and there was nothing above the anal canal. After long discussion with him, his we decided we would take him to the operating room for consideration of a laparotomy and possible colectomy. We went through multiple scenarios given his current findings. He is aware that this is quite a serous tumor. I also brought a brochure in from my office to show him colon polyps and colon cancer as well as various surgeries and the anatomy and so forth. We reviewed the expected intraop and postop course. He does understand there is risk including, but not limited to bleeding, infection, scarring, change in contour of skin, damage to bowel, anastomotic leak, incisional hernias and other unforeseen comorbidities. He and his had expressed understanding and wished to proceed. PROCEDURE NOTE: Gurpreet was taken down to our operating room and given a bilateral abdominal block by our nurse library services coordinator. After that, he was placed in the supine position under general endotracheal tube anesthesia. He had been given preoperative antibiotics. He was on preoperative Lovenox. He had SCDs in place. We placed a Pina catheter without difficulty with return of clear yellow urine. He was then prepped and draped in the usual sterile fashion. We could feel the tumor much better of course after pharmacologic paralysis of his muscles. It is quite large, probably 13 to 15 cm in diameter. It appeared to be mobile. It was not attached to the overlying abdominal wall. We made a standard periumbilical midline incision. On initial exploration, the tumor appeared to be mobile at least circumferentially, but not posteriorly. We had to extend the incision cephalad because of the size of the tumor. We placed a Bookwalter retractor and proceeded to explore the abdomen more thoroughly. He has some thin serosanguineous fluid that we suctioned out. I did not see any evidence of metastatic disease on the liver. There was an area of hemorrhage on the anterior wall of the gallbladder and I suspect that may have been lying up against the tumor itself. This tumor actually is in the proximal transverse colon. It is directly over the head of the pancreas. It had drawn the antrum and pylorus toward the tumor. Although, when I looked carefully there is margin there to leave the antrum and pylorus behind. It was also close to the duodenum, but again there is a margin there I think where the duodenum could be left as well. We looked inferiorly and there was a piece of small bowel adherent to the posterior aspect of this tumor, but it is quite mobile and that could Electronically Signed By: KENNEDI STRONG MD 08/27/20 0745 PATIENT NAME: GAUDENCIO VICKERS OPERATIVE REPORT DATE OF : 75 REPORT #: [id number] PHYSICIAN: KENNEDI STRONG MD PCP: ROWENA STEWART PA-C REPORT IS CONFIDENTIAL AND NOT TO BE RELEASED WITHOUT AUTHORIZATION [facility] [address] [place], [place] [address] Signed easily be resected. However, the tumor is somewhat adherent to the retroperitoneum inferiorly and certainly somewhat adherent over the head of the pancreas. After some thought and discussion with the staff, obviously there was concern about resecting this over the head of his pancreas for clear margins. Since we are 25 bed critical access hospital, we thought he would be much better served at a larger [facility] with a team approach, particularly if he is going to achieve clear surgical margins in this particular situation. In that regard, I did take the time to call his and discussed this with her as well. She is in agreement. Having said that, we closed his midline fascia with interrupted #1 PDS sutures. We brought the dermis back together with interrupted 3-0 subcuticular Monocryl sutures. The skin edges were reapproximated with krish. Dry gauze and tape were then applied. Gaudencio was then awakened from his anesthesia, extubated in the OR, and taken to recovery room in stable condition. Kennedi Strong MD ALB/MODL /[id number] cc: MD Rowena Charlton PA-C Copies: KENNEDI STRONG MD ~ Electronically Signed By: KENNEDI STRONG MD 08/27/20 0745 PATIENT NAME: GAUDENCIO VICKERS OPERATIVE REPORT DATE OF : 75 REPORT #: [id number] PHYSICIAN: KENNEDI STRONG MD PCP: ROWENA STEWART PA-C REPORT IS CONFIDENTIAL AND NOT TO BE RELEASED WITHOUT AUTHORIZATION
== END 2020-08-26 14:55 | DRG 358 ==
LOC: ED 10:30 → MS 16:01
PROVIDERS: ADMIT Colon & Rectal Surgery; ATTEND Colon & Rectal Surgery
PROC: 30233N1 Transfusion of Nonautologous Red Blood Cells into Peripheral Vein, Percutaneous Approach (ICD-10-PCS; 2020-08-23)
PROC: 0DBL8ZX Excision of Transverse Colon, Via Natural or Artificial Opening Endoscopic, Diagnostic (ICD-10-PCS; 2020-08-25)
PROC: 0DBP8ZX Excision of Rectum, Via Natural or Artificial Opening Endoscopic, Diagnostic (ICD-10-PCS; principal; 2020-08-25 09:15)
PROC: 0DJD0ZZ Inspection of Lower Intestinal Tract, Open Approach (ICD-10-PCS; 2020-08-26)
PROC: 3E0T3BZ Introduction of Anesthetic Agent into Peripheral Nerves and Plexi, Percutaneous Approach (ICD-10-PCS; 2020-08-26)
PROC: 3E0T33Z Introduction of Anti-inflammatory into Peripheral Nerves and Plexi, Percutaneous Approach (ICD-10-PCS; 2020-08-26)
DX: C18.4 Malignant neoplasm of transverse colon (principal); Z20.822 Contact with and (suspected) exposure to COVID-19; G89.18 Other acute postprocedural pain; F17.210 Nicotine dependence, cigarettes, uncomplicated; D50.0 Iron deficiency anemia secondary to blood loss (chronic); K62.1 Rectal polyp; K64.4 Residual hemorrhoidal skin tags; Z79.899 Other long term (current) drug therapy
CPT/HCPCS: 00790; 36415; 64450; 71260; 74177; 76942; 80048; 80053; 81001; 82378; 83690; 83735; 84100; 84134; 85025; 86850; 86900; 86901; 86920; 93005; 93010; 96375; 99285-25; C9113; C9803; J0131; J0330; J0690; J1100; J1170; J1650; J1885; J2001; J2250; J2405; J2550; J2704; J2795; J3475; J7121; P9016; Q9967; U0003

== ENCOUNTER 2020-10-21 13:14 | Emergency (ER) | payer OTHER ==
[~2020-10-21] VITALS: Ht 190.5 cm; Wt 106.1 kg
== END 2020-10-21 13:51 | disposition home or self-care (01) ==
LOC: ED 13:14
DX: L30.9 Dermatitis, unspecified (principal); D64.9 Anemia, unspecified
CPT/HCPCS: 99282

== ENCOUNTER 2021-10-16 07:47 | Day surgery (SDC) | payer OTHER ==
[~2021-10-16] VITALS: Ht 195.6 cm; Wt 122.9 kg
[~2021-10-16 07:47] MED LIST changes: +ADVIL200 MG PO; +PROZAC20 MG PO; +WELLBUTRIN XL300 MG PO
[2021-10-16] MEDS ORDERED: TYLENOL325 MG PO (08:06)
--- NOTE | 2021-10-16 09:13 | NUR ---
10/16/21 0913 Anna Arzola 0908-PATIENT ARRIVED TO PACU ON 10L MASK NONAROUSABLE ORAL AIRWAY IN PLACE LAYING LEFT LATERAL. ABDOMEN SOFT. IVF INFUSING. SR. 0910-PATIENT OPENING EYES TO VERBAL STIMULI ORAL AIRWAY REMOVED. 6L MASK RR EVEN. IVF INFUSING. PATIENT IMMEDIATELY DOZES BACK TO SLEEP.
--- NOTE | 2021-10-16 10:50 | OR ---
[facility] [address] [place], [place] [address] Signed DATE OF OPERATION: 10/16/2021 SURGEON: Kennedi Strong MD POSTOPERATIVE DIAGNOSES: 1. Proximal transverse colon cancer, status post extended right colectomy in 2020. 2. Personal history of colonic polyps (2020). POSTOPERATIVE DIAGNOSES: 1. Ileocolonic anastomosis at 100 cm. 2. Mild to moderately indurated prostate. PROCEDURE: Colonoscopy biopsy. ESTIMATED BLOOD LOSS: None. INDICATIONS: Gaudencio is a 46-year-old gentleman who came to us last year in July of 2020. He had to be admitted to the hospital with severe anemia. 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 He also had a 4 mm polyp at 7 cm. He asked me to perform exploratory laparotomy and sure enough the tumor was directly over his pancreas and the space between the two was quite limited. We therefore felt he was better served at a larger center with the help of hepatobiliary surgery as well as the colorectal surgeon. He was therefore transferred down to [facility]. Indeed, it was surgery and they had to be extremely careful with the superior mesenteric vein in the area directly over the pancreas. He had his ileostomy reversed in November of 2020. He has undergone an extended right colectomy. It did involve the jejunum. However, he has decided not to proceed with chemotherapy. He has been following along with his medical oncologist. He said so far his blood work and all the x-rays have been fine. He has been asked to see me for his followup colonoscopy. He said in the meantime, he is eating well and having good bowel movements. I gave him a pamphlet on colonoscopy and we reviewed the nature of that test. There is risk including, but not limited to gas bloating, crampy abdominal pain, bleeding, perforation requiring surgery and missed diagnosis. He had moderate anesthesia care previously while in the hospital, but on this occasion, he wanted to proceed with standard Versed and fentanyl. Unfortunately, that did not work out given his daily intake of marijuana along with his antianxiety medications. We therefore had to call an anesthesia provider for a propofol infusion. Electronically Signed By: KENNEDI STRONG MD 10/16/21 1050 PATIENT NAME: GAUDENCIO VICKERS OPERATIVE REPORT DATE OF : 75 REPORT #: [id number] PHYSICIAN: KENNEDI STRONG MD PCP: ROWENA STEWART PA-C REPORT IS CONFIDENTIAL AND NOT TO BE RELEASED WITHOUT AUTHORIZATION [facility] [address] [place], [place] [address] Signed PROCEDURE NOTE: Gaudencio was taken into our endoscopy suite and placed in the left lateral decubitus position. He was given 9 mg of Versed and 100 mcg of fentanyl. Even then, he was awake and talking to us and in too much pain to advance the scope. He is technically easy to pass the scope, however. Our anesthesia provider came and added some propofol and with that we were able to advance the scope right up to the anastomosis at 100 cm. It appears he has a [id number] stapled anastomosis. It is well healed. No evidence of any granulation tissue, ulceration or recurrent cancer. The scope was then slowly withdrawn. The rest of the colon was completely unremarkable. There was no polyps, no diverticulosis. The rectum was unremarkable. Upon retroflexion of the scope, he really has nothing in the way of hemorrhoid tissue at this time. We did notice a little bit of induration to the prostate on digital rectal exam. After this, the gas was suctioned out and the colonoscope removed. Overall, Gurpreet tolerated the procedure quite well. RECOMMENDATIONS: I will see Gurpreet back in one year for repeat colonoscopy. He will need moderate anesthesia care in the future as described above. Kennedi Strong MD ALB/MODL /[id number] cc: MD Rowena Jain Robert C Quackenbush, MD Andrew L Bower, MD Copies: COREY HARRISON MD, ROBERT C MD Electronically Signed By: KENNEDI STRONG MD 10/16/21 1050 PATIENT NAME: GAUDENCIO VICKERS OPERATIVE REPORT DATE OF : 75 REPORT #: [id number] PHYSICIAN: KENNEDI STRONG MD PCP: ROWENA STEWART PA-C REPORT IS CONFIDENTIAL AND NOT TO BE RELEASED WITHOUT AUTHORIZATION [address] [address] Signed KENNEDI STRONG MD ~ Electronically Signed By: KENNEDI STRONG MD 10/16/21 1050 PATIENT NAME: GAUDENCIO VICKERS OPERATIVE REPORT DATE OF : 75 REPORT #: [id number] PHYSICIAN: KENNEDI STRONG MD PCP: ROWENA STEWART PA-C REPORT IS CONFIDENTIAL AND NOT TO BE RELEASED WITHOUT AUTHORIZATION
== END 2021-10-16 09:50 | disposition home or self-care (01) ==
LOC: DS 07:47 → OPS 07:47 → DS 09:00 → OPS 09:50
PROVIDERS: ATTEND Colon & Rectal Surgery
PROC: 0DJD8ZZ Inspection of Lower Intestinal Tract, Via Natural or Artificial Opening Endoscopic (ICD-10-PCS; principal; 2021-10-16 09:00)
DX: Z12.11 Encounter for screening for malignant neoplasm of colon (principal); E66.9 Obesity, unspecified; Z68.33 Body mass index [BMI] 33.0-33.9, adult; Z86.010 Personal history of colon polyps; Z85.038 Personal history of other malignant neoplasm of large intestine; Z90.49 Acquired absence of other specified parts of digestive tract
CPT/HCPCS: J2250; J2704; J3010; J7121

== ENCOUNTER 2023-02-26 15:59 | Emergency (ER) | payer OTHER ==
[~2023-02-26] VITALS: Ht 195.6 cm; Wt 127.0 kg
[~2023-02-26 15:59] MED LIST changes: +TYLENOL325 MG PO
[2023-02-26] MEDS ORDERED: BUPROPION XL300 MG PO (18:54)
[2023-02-26] MEDS ORDERED: VENLAFAXINE H37.5 M1 PO (18:54)
[2023-02-26 19:28] LABS: BASOPHILS 0.6 % (0-2); EOSINOPHILS 1.9 % (0-6); HEMATOCRIT 43.5 % (35.0-50.0); HEMOGLOBIN 15.1 g/dL (12.0-18.0); LYMPHOCYTES 27.4 % (24-44); MCH 30.3 (27-36); MCHC 34.7 g/dl (30-36); MCV 87.5 fl (81-99); MONOCYTES 4.9 % (0-12); NEUTROPHILS 65.2 % (39-80); PLATELET COUNT 190 K/uL (140-440); RBC 4.97 M/ul (4.3-5.7); RDW 12.9 (10.5-15.0)
[2023-02-26] MEDS ORDERED: TRAMADOL HCL50 MG PO (19:43)
[2023-02-26] MEDS ORDERED: BACTRIM DS TAB1 EACH PO (19:43)
[2023-02-26 20:12] VITALS: BP 159/102
== END 2023-02-26 20:14 | disposition home or self-care (01) ==
LOC: ED 15:59
PROVIDERS: Family Medicine
DX: L03.114 Cellulitis of left upper limb (principal); R79.82 Elevated C-reactive protein (CRP); Z23 Encounter for immunization; Z79.899 Other long term (current) drug therapy
CPT/HCPCS: 36415; 73080; 85025; 86140; 90471; 90715; 99283-25; A9270